=== PATIENT | male | born 1975 | race Caucasian/White ===

== ENCOUNTER → 2016-11-17 | Outpatient (CLI) | payer OTHER ==
--- NOTE | 2016-11-17 17:51 | DX ---
Left foot, 3 views. HISTORY: Pain. FINDINGS: Normal alignment. Joint spaces are maintained. No fracture. Small plantar calcaneal spur. IMPRESSION: Small plantar calcaneal spur, otherwise negative.
== END ==
LOC: FIMAGING 11:58
PROVIDERS: ATTEND Family Medicine
DX: M77.32 Calcaneal spur, left foot (principal)